=== PATIENT | female | born 1950 | race Caucasian/White ===

== ENCOUNTER → 2017-02-11 | Day surgery (SDC) | payer MEDICARE, OTHER ==
[~2017-02-11] MED LIST: ALLOPURINOL300 MG PO; ASCORBIC ACID500 M2 PO; ASPIRIN81 M1 PO; ASPIRIN81 M2 PO; BACLOFEN20 M1 PO; BENADRYL25 M1 PO; BENADRYL25 MG PO; CALCIUM 600 W/1 TAB PO; CALCIUM 600+D1 EACH PO; CALCIUM STOOL240 M1 PO; CEROVITE SENIO1 EACH PO; CHEWABLE ASPIRI81 MG PO; CHROMIUM PIC1000 MCG PO; COL-RITE50 MG PO; COMPAZINE10 M2 PO; DESYREL100 MG PO; DETROL PO; FERROUS GL324 ( 36 ) PO; FERROUS GLUCON324 M2 PO; FLEXERIL10 MG PO; GABAPENTIN300 M2 PO; GABAPENTIN300 MG PO; HYDROCODON-ACE1 EAC7 PO; K-DUR20 ME1 PO; KCL PO; LEVAQUIN250 MG PO; LISINOPRIL PO; LISINOPRIL5 MG PO; LOPRESSOR PO; LORTAB 5-325 M1 EACH PO; MELATONIN1 MG PO; MELATONIN5 M1 PO; METOPROLOL TAR25 MG PO; MULTIPLE VITAMI1 T11 PO; MULTIVITAMINS1 EAC3 PO; NAPROSYN250 M1 PO; NAPROXEN PO; OMEPRAZOLE40 M1 PO; PATIENT'S PHARMACY; POTASSIUM CHLO10 ME2 PO; PREDNISONE PO; PRILOSEC PO; ROBAXIN 750750 M1 DOB; ROBAXIN 750750 MG PO; TRAMADOL HCL E100 MG PO; TRIAMTERENE-HC1 EACH PO; TRIAMTERENE-HCT1 TA6 PO; VITAMIN C1000 M2 PO; VITAMIN C500 M1 PO; VITAMIN E400 UNI1 PO; ZOFRAN PO
--- NOTE | ~2017-02-11 | OR ---
Unit #: [id number] #: [id number] Patient: NEEL BENAVIDES I [id number] [address] [address] [id number] O MR#: [id number] NAME: NEEL BENAVIDES I. ROOM: Date of Procedure: 02/11/2017 Admission Date: 02/11/2017 Surgeon: Benigno Olivas M.D. : 1950 Attending Physician: Benigno Olivas M.D. Primary Care Physician: Lexi Jamil M.D. OPERATIVE REPORT PRIMARY CARE PHYSICIAN Lexi Jamil M.D. PREOPERATIVE DIAGNOSES Dyspepsia, dysphagia, bloating, and burping. PROCEDURES PERFORMED 1. Upper gastrointestinal endoscopy and biopsy. 2. Upper gastrointestinal endoscopy and dilation. POSTOPERATIVE DIAGNOSES 1. The patient had distal esophageal benign stricture. The latter was dilated using 18 to 20 mm TTS balloon. 2. The patient had short segment of Vincent esophagus. Appropriate biopsies obtained. 3. Mild prepyloric antral gastritis. This was in the form of scanty erosions in the prepyloric antral area. Rest of the examination up to third part of duodenum was normal. RECOMMENDATIONS 1. Follow up the results of biopsies taken today. 2. The patient will continue on omeprazole 40 mg p.o. daily. 3. She will be followed up in the office in 3 months' time. SEDATION USED MAC. DESCRIPTION OF PROCEDURE Following detailed explanation of the potential risks and complications of an upper endoscopy, namely perforation, bleeding, and complications related to sedation, the patient was brought to GI lab and laid in the left lateral decubitus position. Lubricated tip of the Olympus video upper endoscope was passed through bite block into the proximal esophagus under direct vision. The entire esophageal mucosa was examined and the patient was noted to have distal esophageal benign stricture along with evidence of short segment of Vincent esophagus. This was in the form of tongues of columnar mucosa ascending above the gastroesophageal junction. The scope was then advanced into the gastric cavity and the latter was insufflated. Mucosa of the fundus, body, and antrum examined and mild prepyloric antral erosive gastritis noted in the form of antral erosions. Pylorus was intubated with visualization of the normal duodenal bulb and second and third part of the duodenum. Upon withdrawal and retroflexion, Unit #: [id number] #: [id number] Patient: NEEL BENAVIDES I incisura, cardia, and greater curve examined and biopsy obtained from the antrum for CLOtest. The scope was then withdrawn in the distal esophagus. An 18 to 20 mm TTS balloon was passed through the accessory channel of the scope and step-up dilation of distal esophageal stricture was done. In addition, biopsies obtained from the Vincent segment and sent for histology. Dilation up to 19 mm was achieved. Minimal bleeding was noted. The area was thoroughly washed with water and good hemostasis was achieved. The scope was then withdrawn all the way up to pharynx. No additional findings noted. The patient tolerated the procedure without any postprocedure complications. Dictated by... Latoya Conway/coleman TD: 02/11/2017 11:40 JOB #: [id number] CC: Lexi Jamil M.D. OPERATIVE REPORT Page 1 of 1 X Benigno Olivas MD X PROCEDURE OPERATIVE NOTE
== END | disposition home or self-care (01) ==
LOC: COPS 07:48
DX: K21.0 Gastro-esophageal reflux disease with esophagitis (principal); K22.2 Esophageal obstruction; K25.9 Gastric ulcer, unspecified as acute or chronic, without hemorrhage or perforation; M81.0 Age-related osteoporosis without current pathological fracture; I10 Essential (primary) hypertension; M19.90 Unspecified osteoarthritis, unspecified site; Z79.899 Other long term (current) drug therapy; Z88.8 Allergy status to other drugs, medicaments and biological substances; Z90.722 Acquired absence of ovaries, bilateral; Z98.41 Cataract extraction status, right eye; Z98.42 Cataract extraction status, left eye; Z90.710 Acquired absence of both cervix and uterus; Z98.890 Other specified postprocedural states
CPT/HCPCS: 87077; 88305

== ENCOUNTER 2017-03-28 07:16 | Inpatient (IN) | payer MEDICARE, OTHER ==
[~2017-03-28] VITALS: Ht 175.3 cm; Wt 82.6 kg
--- NOTE | ~2017-03-28 | CR6 ---
[facility] A Service of [facility] & [facility] RADIOLOGY TEXT RESULTS PATIENT: NEEL BENAVIDES I LOCATION: [place] [address] : [birth year] UNIT #: [id number] AGE: [address]: Ramin Luna MD SEX: F ORDER DR: [id number] [facility] [address] [facility] [place], [place] [address] [id number] I MR#: [id number] Acc #: [id number] NAME: NEEL BENAVIDES I. : 1950 SEX: F STUDY DATE/TIME: 03/29/2017 15:33 UNIT: [facility] ROOM: [facility] STUDY DESCRIPTION: CR Abdomen Portable Sng View Attending Physician: Ramin Luna M.D. Ordering Physician: Ramin Luna M.D. Primary Care Physician: Lexi Jamil M.D. MEDICAL IMAGING REPORT This report is preliminary unless electronic signature is present EXAM KUB 03/29/2017 HISTORY Dobbhoff placement with abdominal pain today. FINDINGS Radiopaque tip of the Dobbhoff tube projects into the distal gastric body. Dictated by... Machelle Mcknight M.D. THIS IS AN ELECTRONICALLY VERIFIED REPORT Machelle Mcknight M.D. at 04/01/2017 8:34 AM EILEEN/steven TD: 03/30/2017 06:19 JOB #: [id number] MEDICAL IMAGING REPORT Page 1 of 1 COPY
--- NOTE | ~2017-03-28 | EKG ---
PATIENT: NEEL BENAVIDES UNIT #: [id number] Ventricular Rate: 110 BPM Atrial Rate: 110 BPM P-R Interval: 166 ms QRS Duration: 84 ms Q-T Interval: 344 ms QTC Calculation(Bezet): 465 ms P [place]: 47 degrees Calculated R [place]: -58 degrees Calculated T [place]: 39 degrees Diagnosis Line: Sinus tachycardia Diagnosis Line: Left axis deviation Diagnosis Line: Anterolateral infarct (cited on or before Diagnosis Line: 28-MAR-2017) Diagnosis Line: Abnormal ECG Diagnosis Line: When compared with ECG of 29-MAR-2017 06:19, Diagnosis Line: (unconfirmed) Diagnosis Line: T wave inversion no longer evident in Lateral Diagnosis Line: leads Diagnosis Line: Confirmed by ERICA RICARDO MD ([id number]) on 04/02/2017 Diagnosis Line: 3:16:29 PM INTERPRETING MD: HALEIGH CONTRERAS
--- NOTE | ~2017-03-28 | MR18 ---
[facility] A Service of [facility] RADIOLOGY TEXT RESULTS PATIENT: NEEL BENAIVDES I LOCATION: [place] [id number] : [birth year] UNIT #: [id number] AGE: [address]: Ramin Luna MD SEX: F ORDER DR: [id number] [facility] [address] [place], [place] [address] [id number] I MR#: [id number] Acc #: [id number] NAME: NEEL BENAVIDES I. : 1950 SEX: F STUDY DATE/TIME: 03/29/2017 UNIT: [facility] ROOM: [facility] STUDY DESCRIPTION: MR Brain Wo Contrast Attending Physician: Ramin Luna M.D. Ordering Physician: Luis Walker M.D. Primary Care Physician: Lexi Jamil M.D. MEDICAL IMAGING REPORT This report is preliminary unless electronic signature is present EXAM MR brain 03/29 at 21:29 INDICATIONS Patient combative since 03/27/2017 per . Patient confused. Patient unable to give additional history. TECHNIQUE Multisequence multiplanar imaging was performed through the brain without contrast in a high field strength magnet. Comparison made with head CT from 03/28/2017. FINDINGS Diffusion images demonstrate no acute or subacute ischemia. There is generalized atrophy. This is somewhat out of proportion to patient age. Ventricular size and configuration are within normal limits. Chronic small vessel ischemic changes are present in the white matter. No evidence of acute or chronic hemorrhage. No masses are identified. Major intracranial flow voids are maintained. Craniovertebral junction is within normal limits. IMPRESSION 1. No acute intracranial abnormalities. 2. Generalized atrophy out of portion to patient age with chronic small vessel ischemic disease in the white matter. Dictated by... Calderon Salcedo Jr., M.D. THIS IS AN ELECTRONICALLY VERIFIED REPORT Calderon Salcedo Jr., M.D. at 03/30/2017 8:31 PM [facility] A Service [facility] RADIOLOGY TEXT RESULTS PATIENT: NEEL BENAVIDES I LOCATION: [facility] [id number] : [birth year] UNIT #: [id number] AGE: [address]: Ramin Luna MD SEX: F ORDER DR: BAIRON/dionisio TD: 03/30/2017 11:33 JOB #: [id number] MEDICAL IMAGING REPORT Page 1 of 1 COPY
--- NOTE | ~2017-03-28 | CR72 ---
[facility] A Service of [facility] & [facility] RADIOLOGY TEXT RESULTS PATIENT: NEEL BENAVIDES I LOCATION: [facility] [id number] : [birth year] UNIT #: [id number] AGE: [address]: Ramin Luna MD SEX: F ORDER DR: [id number] [facility] [address] [place], [place] [address] [id number] I MR#: [id number] Acc #: [id number] NAME: NEEL BENAVIDES I. : 1950 SEX: F STUDY DATE/TIME: 03/28/2017 07:57 UNIT: [address] ROOM: [facility] STUDY DESCRIPTION: CR Chest Single View Portable Attending Physician: Nenita Pedersen M.D. Ordering Physician: Ham Sampson M.D. Primary Care Physician: Lexi Jamil M.D. MEDICAL IMAGING REPORT This report is preliminary unless electronic signature is present EXAM Chest portable, 03/28/2017, 0757 hours. HISTORY 66-year-old woman with altered mental status and shortness of air beginning at 10:00 a.m. on 03/27/2017. History of lymphoma, hypertension and anemia. Patient is combative this morning and will not speak to answer clinical history questions. COMPARISON 12/24/2015 FINDINGS Portable upright chest demonstrates slightly low lung volumes. Heart size is at the upper limits of normal. There is a stable tortuous aorta. The lungs are clear and there are no effusions. IMPRESSION Slightly low lung volumes with no acute cardiopulmonary findings. No change from 12/24/2015. Dictated by... Elsy Plasencia M.D. THIS IS AN ELECTRONICALLY VERIFIED REPORT Elsy Plasencia M.D. at 03/29/2017 9:26 AM DUYEN/bryan TD: 03/28/2017 16:37 JOB #: [id number] MEDICAL IMAGING REPORT Page 1 of 1 COPY
--- NOTE | ~2017-03-28 | CO ---
Unit #: [id number] #: [id number] Patient: JULIETTE BENAVIDES I [id number] [address] [place], [place] [address] [id number] I MR#: [id number] NAME: JULIETTE BENAVIDES I. [place] Age: 66 Sex: F Admission Date: 03/28/2017 : 1950 Attending Physician: Ramin Luna M.D. Primary Care Physician: Lexi Jamil M.D. Requesting Physician: Ramin Luna M.D. Consultation Date: 03/29/2017 CONSULTATION REPORT REASON FOR CONSULTATION Large cell lymphoma, altered mental status, please evaluate. 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 She was brought in by the EMS on 03/28/2017 with altered mental status. According to who is at bedside, his has been complaining of back pain and she was initially treated with a muscle relaxant. With persistence of pain, she was started on baclofen. He does not recollect what mg strength but she was taking in 3x a day. On Tuesday morning she woke up and was crying uncontrollably. He was able to reassure her and calm her down. Later that evening she again started to cry uncontrollably and he gave her a sleeping pill and managed to get her to go to sleep. On Tuesday morning she woke up even more confused and behaving abnormally. He called EMS and she was brought in to the hospital. She has been seen by neurology and diagnosed with catatonia and MRI recommended. In the ER, she has had a CT scan of the head which was negative. At admission, she was found to be tachycardic and hypertensive with an elevated troponin level. A possible stress cardiomyopathy has been diagnosed and she has been started on Lovenox and aspirin. No fever, chills, nausea, vomiting. On admission, her lactic acid level was 5.5. Her UA was abnormal with 10-20 WBC per high power field. A urinary tract infection similar to what she has had previously was suspected and she was given a gram of Rocephin. Her urine culture has subsequently come as being negative as have 2 sets of blood cultures. On interrogating the , he thinks that she may have been taking baclofen in excess because he noticed that the 3x a day containers contained twice the number of pills and he thinks that the hydrocodone which she was taking could be confused with the baclofen and she may have taken excess of this. PAST MEDICAL HISTORY 1. Large cell lymphoma diagnosed in 2014, treated with 6 cycles of RCHOP, complicated with neutropenic sepsis requiring MediPort removal. 2. Other medical problems include hypertension. PAST SURGICAL HISTORY Includes: 1. MediPort placement. 2. Bladder repair. 3. Carpal tunnel release. 4. Hysterectomy. 5. Cataract surgery. Unit #: [id number] #: [id number] Patient: JULIETTE BENAVIDES Elli 6. D and C. FAMILY HISTORY Notable for breast cancer. SOCIAL HISTORY Never smoker. Does not drink any alcohol. She is and lives with the . She has 2 daughters, 1 of whom lives locally. REVIEW OF SYSTEMS Not obtainable apart from what was in the History of Present Illness corroborated by her . PHYSICAL EXAMINATION GENERAL: On examination, she is an elderly woman, awake but not following any commands except on occasion. She is somewhat diaphoretic and tachycardic. HEENT: Face is somewhat flushed. Pupils are equal. VITALS: Temperature is 99.9, pulse is 102, respiratory rate is 18, blood pressure 151/94. O2 sat 96% on room air. T-max has been 100.2 with heart rates ranging between 133 at the time of admission to a heart rate of 102 at time of examination. Mucous membranes are dry. NECK: No lymphadenopathy, JVD, thyromegaly. CARDIOVASCULAR SYSTEM: First and second heart sounds are heard with tachycardia which is regular. No murmurs. LUNGS: Chest expansion is symmetric. Bilateral equal air entry with normal breath sounds. ABDOMEN: Soft, nontender. Bowel sounds are active. No organomegaly. EXTREMITIES: Warm with good pulses. No edema, cyanosis, clubbing. NEURO EXAMINATION: She is awake and arousable but does not follow commands. She has variable rigidity of both arms and hyperactive reflexes without any clear focal deficits. Cranial nerves II-XII appear intact. PSYCHIATRIC: Could not be tested. SKIN: Flushed. LYMPHATIC; No palpable lymph nodes. DIAGNOSTIC STUDIES LABORATORY: Labs - CBC at time of admission shows a white count of 5.5, hemoglobin 16.8, hematocrit 48.1, platelet count is 191,000. Ammonia level is 14. Protime is 11.6, INR 1.1, PTT is 24.4 seconds. Basic metabolic panel shows a BUN of 14, creatinine is 1, potassium of 3.6, eGFR is 59.1. LFTs show a bilirubin of 0.4. Alcohol is less than 5. Urine drug screen is only positive for opiates. Lactic acid at time of admission is 5.5. Her UA with urine culture shows 25-50 RBCs, innumerable white blood cells. However, her urine culture is negative. Blood culture is negative. TSH is 1.07. Unit #: [id number] #: [id number] Patient: JULIETTE BENAVIDES I Initial troponin level is 0.23, elevated to 1.8. Vitamin B12 is 367. Folic acid level is greater than 27.3. Her CPK level at time of admission is 164 with a most recent CPK level being 595. Most recent lactic acid is 2.6. IMAGING: CT scan of the head done without contrast is normal. ASSESSMENT AND PLAN Ms. Elham Benavides is 66 years old with a history of stage 2 large cell lymphoma and hypertension, admitted with altered mental status starting on 03/27/2017. She has been prescribed baclofen in the last 2 weeks but it is unclear from her 's account whether she has been taking or may have stopped it. She also may additionally have a urinary tract infection for which she is on antibiotics. However, urine culture and blood cultures are currently negative. However, the fact her lactic acid is elevated at 5.5 certainly suggests the possibility. After discussion with the patient and the I did a review of literature and there is a well known entity of baclofen withdrawal syndrome. After discussion with the this may most likely be the problem and I discussed it with rosina Lunaist. I will plan to consult Dr. Mello with whom I discussed the situation and will plan to transfer her to the Intensive Care Unit given the risk of high morbility and mortality if she indeed has a baclofen withdrawal syndrome. I spoke to pharmacy. There is no parenteral substitute for baclofen so will plan to place a Dobbhoff tube and administer baclofen p.o. I spoke to Anesthesia as well as ER physicians who both do not have any additional information to suggest management of baclofen withdrawal syndrome. I would like to call Dr. Jose Reynolds of Pain Management who may have additional input but is yet to receive a call. I also spoke to Dr. Marti who thinks that she may have stress cardiomyopathy and will plan to call me back after the echocardiogram is reviewed. Will continue Lovenox for the moment given her elevated troponin level which may be related to stress cardiomyopathy until that situation is clarified. However, (2) suggests possible that baclofen withdrawal syndrome itself can produce troponin elevation and a drug-induced cardiomyopathy which responds to reintroduction to baclofen. After transfer to Intensive Care Unit, she was given 1 mg of Ativan with no significant improvement. Her Dobbhoff tube was placed and she was started on baclofen 5 mg 3x a day with additional dose of 5 mg to be given this evening. She will be scheduled for an MRI to be done later this evening as well. Plans were discussed in detail with and at a later time with the rest of her family including her daughter and the plans to bring in her baclofen bottle to corroborate the number of pills she has been prescribed and taken. Thanks for allowing me to participate in her care. Dictated by... Latoya Albrecht/stella TD: 03/30/2017 08:08 JOB #: [id number] Unit #: [id number] #: [id number] Patient: JULIETTE BENAVIDES Elli CONSULTATION REPORT Page 1 of 1 X Maximilian Peterson MD CONSULTATION REPORT
--- NOTE | ~2017-03-28 | CO ---
Unit #: [id number] #: [id number] Patient: NEEL BENAVIDES I [id number] [address] [place], [place] [address] [id number] I MR#: [id number] NAME: NEEL BENAVIDES I. ROOM: [facility] Age: 66 Sex: F Admission Date: 03/28/2017 : 1950 Attending Physician: Ramin Luna M.D. Primary Care Physician: Lexi Jamil M.D. Consultation Date: 03/29/2017 CONSULTATION REPORT REASON FOR CONSULTATION ICU. HISTORY OF PRESENT ILLNESS The patient is a 66-year-old female, who has a history of gastric lymphoma and hypertension, who was basically in her normal state of health and had altered mental status. She was found to be crying uncontrollably. She is on baclofen and it is unclear if she took extra doses or actually missed doses and took pain medicine instead. She then was brought to the emergency room. She was confused and basically has become catatonic. There was some question of rigidity, although she fought my exam and then her muscles gave away, so rigidity was of question, however, difficult to ascertain. Lactic acid was elevated. She had low grade temperatures. Urinary tract infection was suspected by her urinalysis, but cultures so far are not growing pathogens. Her troponins have increased and Cardiology is treating her as if she has had a myocardial infarction, but apparently she had a cardiac catheterization recently that was negative. She currently is nonverbal and cannot add to the history. She looks about the room, but again remains nonverbal despite questioning. She is being transferred to the intensive care unit for further observation. The working diagnosis is baclofen withdrawal. PAST MEDICAL HISTORY Remarkable for urinary tract infections in the past, gastric lymphoma, hypertension, and apparently she has undergone cardiac evaluation which was fairly negative. MEDICATIONS At home according to the EHR, hydrocodone, potassium, Lopressor, Desyrel, Zestril, gabapentin, Prilosec, Compazine, docusate, melatonin, calcium, iron. I do not see baclofen listed, but apparently she is on that at home and her confirms that. ALLERGIES Sudafed causes tachycardia, so I doubt true allergy. FAMILY HISTORY Breast cancer. SOCIAL HISTORY She lives with her . She does not drink or smoke. REVIEW OF SYSTEMS Unobtainable. Unit #: [id number] #: [id number] Patient: NEEL BENAVIDES I PHYSICAL EXAMINATION VITAL SIGNS: Reveals the patient, who had a T-max of 100.2, now 99.9; pulse is 102, but she has been as high as 124; respiratory rate is 18 and unlabored on room air; blood pressure is 151/94. She is 5 feet 9 inches, 176 pounds. HEENT: Her pupils are equal, round, and reactive to light. She looks about the room. She does have some startle when I put my hand in front of her. Mucous membranes are mildly dry. NECK: Supple. No supraclavicular or cervical adenopathy appreciated. CHEST: Clear anteriorly. No wheeze, stridor, or consolidation. CARDIAC: Reveals regular rate and rhythm. No pathologic murmur, rub, or gallop. ABDOMEN: Soft and nontender. No hepatomegaly or rebound. EXTREMITIES: Reveal some possible rigidity. She did move both upper extremities to my commands and the nursing staff said that is the first time she has done that all day. Again, when I worked with her, she initially held pressure against my hand, but then it seemed to giveaway, unclear if it was true rigidity. She has extension of her feet, otherwise would not cooperate with a full neurologic exam. SKIN: Warm and dry. DIAGNOSTIC STUDIES IMAGING STUDIES: Chest x-ray, unremarkable. Head CT, unremarkable. LABORATORY RESULTS: BUN 13, creatinine 0.7, potassium 3.1 and being replaced. Lactate was 5.5, now it is 2.6. Ammonia level is normal. Troponin has increased to 1.8. CK now is 595. INR normal. White blood cell count was 5.5, now 11.2; hemoglobin has been elevated at 16.7 and hematocrit of 47.5. Tox screen, opiates. Urinalysis; pyuria, some hematuria. Culture was negative. Blood cultures are no growth so far. CARDIOVASCULAR STUDIES: EKG; no definite acute ischemic changes. IMPRESSION 1. Catatonia possible knee rigidity, elevated troponin and CK, low-grade temperature. Certainly, it could be baclofen overdose. I have discussed this case in depth with Dr. Peterson. We have tried to look up this fairly rare complication. It actually can also cause a reversible cardiomyopathy, although withdrawal syndromes are usually seen in higher dosages. 2. Abnormal UA, possible urinary tract infection. 3. History of gastric lymphoma. 4. Polycythemia suspect some degree of volume depletion. 5. History of hypertension. PLAN Move to the ICU, trial of benzodiazepines. Feeding tube will be placed and once confirmed, we will start low-dose baclofen. Follow her CKs, troponins, etc. I have discussed the case closely with family and Dr. Peterson. Echocardiogram is pending. Thank you very much for allowing me to participate in the care of Ms. Benavides. Dictated by... Ramin Mello M.D. Unit #: [id number] #: [id number] Patient: NEEL BENAVIDES I LESLYE/coleman TD: 03/29/2017 19:51 JOB #: [id number] CC: Lexi Jamil M.D. CONSULTATION REPORT Page 1 of 1 X Ramin Mello MD CONSULTATION REPORT
--- NOTE | ~2017-03-28 | CR6 ---
[facility] A Service of [facility] & [facility] RADIOLOGY TEXT RESULTS PATIENT: NEEL BENAVIDES I LOCATION: [facility] : [birth year] UNIT #: [id number] AGE: [address]: Ramin Luna MD SEX: F ORDER DR: [id number] [facility] [address] [facility] [place], [place] [address] [id number] I MR#: [id number] Acc #: [id number] NAME: NEEL BENAVIDES I. : 1950 SEX: F STUDY DATE/TIME: 03/29/2017 17:27 UNIT: [facility] ROOM: [facility] STUDY DESCRIPTION: CR Abdomen Portable Sng View Attending Physician: Ramin Luna M.D. Ordering Physician: Ramin Mello M.D. Primary Care Physician: Lexi Jamil M.D. MEDICAL IMAGING REPORT This report is preliminary unless electronic signature is present EXAM Portable abdomen. HISTORY A abdomen pain today. Feeding tube placement. FINDINGS The visualized bowel gas pattern is normal. Exam does not include the most inferior margin of the pelvis. Feeding tube tip is in the right upper quadrant at the level of the duodenal bulb or distal gastric antrum approximately 22 cm beyond the EG junction. Dictated by... Gabriele Diaz M.D. THIS IS AN ELECTRONICALLY VERIFIED REPORT Gabriele Diaz M.D. at 03/30/2017 11:44 PM DFL/gz TD: 03/30/2017 09:05 JOB #: [id number] MEDICAL IMAGING REPORT Page 1 of 1 COPY
--- NOTE | ~2017-03-28 | CO ---
Unit #: [id number] #: [id number] Patient: NEEL BENAVIDES I [id number] [address] [place], [place] [address] [id number] I MR#: [id number] NAME: NEEL BENAVIDES I. ROOM: [facility] Age: 66 Sex: F Admission Date: 03/28/2017 : 1950 Attending Physician: Ramin Luna M.D. Primary Care Physician: Lexi Jamil M.D. Consultation Date: 03/28/2017 CONSULTATION REPORT REASON FOR CONSULTATION Elevated troponin. 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 Peterson, last chemo was in 10/2015. The patient has chronic pain problems. She takes pain medications and gabapentin. The patient was brought in by her after she had altered mental status changes. According to the patient, she was fine on Tuesday morning and through the day, she started crying uncontrollably was precipitating her crying. She was not making sense on most of her conversation. She made a statement how to make coffee and she said it was raining in her closet. He did not observe any fever, chills, or cough and she had no complaints of chest pain, abdominal pain. No nausea, vomiting, or diarrhea. Her appetite had been good up to that time. On exam with the patient, she is unable to answer any questions. She just has a stare. Did do a hand squeeze on command and then would not release the hand squeeze when asked. The patient is moving at times all extremities but without purpose. In the emergency room, the patient's initial heart rate was 133 and her blood pressure was 165/97. Her urinalysis showed concerns for UTI. Her lactic acid was 5.5. She was started on the sepsis protocol and given a dose of IV Rocephin after cultures. There is concern about her maybe getting too much of her home medication. She received 20 mg of Geodon in the emergency room department. The patient will be admitted with altered mental status, UTI, and sepsis. Cardiac enzymes were obtained and troponin of 0.23 and continued to increase to 0.28 to 0.39, this morning 1.19. Her EKG shows sinus rhythm, shows inferior Q-waves, anterolateral infarct age undetermined. Cardiology consult to assist with evaluation and management. The patient does see Dr. Oneill in the office for post radiation and chemotherapy, had a MUGA scan, her EF was found to be 47%. She had normal coronaries on a cath done last December. According to the , she has been doing fairly well. PAST MEDICAL HISTORY 1. Hypertension. 2. 2D echo performed 08/2015 showed LVEF of questionable 50%, mild TR, trace pericardial effusion. Unit #: [id number] #: [id number] Patient: NEEL BENAVIDES I 3. Abnormal stress test performed in 12/2015 which showed some suspicion for small area of stress-induced ischemia involving the inferior apical wall. EF was found to be 65%. 4. Cardiac cath performed by Dr. Marti on 01/08/2016 that showed normal coronaries. No evidence of mitral regurgitation or mural thrombus and LVEF of 50%. 5. History of gastric and esophageal lymphoma, followed by Dr. Peterson, status post chemotherapy with last chemotherapy being 10/2015. 6. History of neutropenic fever secondary to Pseudomonas, Port-A-Cath infection, E coli UTI back in 07/2015. 7. Nonsmoker. PAST SURGICAL HISTORY 1. D and C. 2. Cataract surgery. 3. Hysterectomy. 4. Bladder repair. 5. Carpal tunnel release. HOME MEDICATIONS Hydrocodone/acetaminophen 5/325 one tablet p.o. q.i.d. p.r.n., Klor-Con 20 mEq p.o. daily, metoprolol 25 mg p.o. b.i.d., Desyrel 100 mg p.o. at bedtime, multivitamin one tablet daily, melatonin 5 mg p.o. at bedtime p.r.n., calcium plus vitamin D 1 tablet p.o. b.i.d., ferrous gluconate 324 mg p.o. daily, lisinopril 5 mg p.o. daily, gabapentin 300 mg p.o. t.i.d., Prozac 40 mg p.o. daily, Compazine 10 mg p.o. t.i.d. p.r.n., docusate sodium 300 mg p.o. at bedtime. ALLERGIES Pseudoephedrine from Sudafed. SOCIAL HISTORY The patient lives with her spouse. According to him, she is fairly active for her age. She keeps the chores around the home. She has been a lifelong nonsmoker. No alcohol or illicit drug abuse. She walks without assistance. FAMILY HISTORY Her mother is living and doing fairly well. She is close to 90. Her siblings are in generally well health. Unsure of her father's medical issues. REVIEW OF SYSTEMS See details in HPI. PHYSICAL EXAMINATION GENERAL: On exam, Ms. Benavides is a 66-year-old white female, in no acute respiratory distress. She is awake. She is not nonverbal at this time. She occasionally will obey a command, but other than that she has a stare, does not make good eye contact. Moving extremities, but nonpurposeful, not on command. NECK: Trachea midline. No thyromegaly or lymphadenopathy. Normal carotid upstrokes. No jugular venous distention. HEART: S1 and S2. Regular rate and rhythm. No clicks, murmurs, or rubs. LUNGS: Diminished, otherwise clear. ABDOMEN: Obese, soft, nontender. EXTREMITIES: Pedal pulses are palpable. Trace pedal edema. Unit #: [id number] #: [id number] Patient: NEEL BENAVIDES I DIAGNOSTIC STUDIES LABORATORY RESULTS: Glucose is 159, BUN 13, creatinine 0.7, eGFR is 90.9, sodium 142, potassium 3.1, chloride 108, CO2 of 20, calcium is 9.1, total protein 7.2, albumin 4.2, bilirubin total 1.8, AST 45, ALT 20, alkaline phosphatase is 62. Ammonia level 14. TSH is 1.07. Alcohol level is less than 5. WBCs 9.2, hemoglobin 16.7, hematocrit 47.5, and platelets is 169. Initial cardiac enzymes; CK total is 164 with troponin of 0.23, CK total is 322 with troponin of 0.28, CK total 427 with troponin is 0.39, CK total is 593, MB is 14.5, percentage of MB 2.4, troponin 1.19. Urine tox screen is positive for opiates. Urinalysis shows 3+ leukocyte esterase, 2+ protein, 1.0 urobilinogen, 2+ blood, 25 to 50 rbc's, innumerable WBCs, negative bacteria. Urine and blood cultures are pending. IMAGING STUDIES: Chest x-ray shows low lung volumes, otherwise nothing acute. CT of the head without contrast, nothing acute. CARDIOVASCULAR STUDIES: EKG shows normal sinus rhythm with ventricular rate 125 beats per minute, left axis deviation, inferior Q-waves, T-waves in inferior leads, put also anterolateral leads, and poor R-wave progression. IMPRESSION 1. Altered mental status, catatonic. 2. Urinary tract infection. 3. Sepsis syndrome. 4. Elevated troponin, acute coronary syndrome. Rfk-IL-phplclmq myocardial infarction. Questionable etiology. Has had a cardiac cath in 12/2015 that showed normal coronaries. 5. Hypertension. 6. History of gastric esophageal lymphoma. Told was in remission, last chemo was 12/2015. 7. Hypokalemia. 8. Obesity, BMI of 26, weight 176 pounds. PLAN 1. Cardiology consult to assist with evaluation and management. At this point, we will treat medically for fqh-ZT-qxjxcfms myocardial infarction. The patient is unable to swallow her pills at this time due to her catatonic state. We will start on IV metoprolol 5 mg IV every 6 hours with parameters. The patient is on p.r.n. hydralazine for blood pressure management. We will add low-dose nitroglycerin paste and aspirin per rectum. 2. Obtain a fasting lipid profile and evaluate. However, I was unable to give a statin today because of her n.p.o. status. 3. We will continue to monitor cardiac enzymes. There is no evidence of acute congestive heart failure. 4. Had a long discussion with the patient's spouse over the phone about her health issues and conditions. The patient states he has been over 40 years and he has never seen his in this state. We will have Dr. Walker to see the patient to make his recommendation of the etiology of her catatonic state. 5. We will start on anticoagulation for the non-STEMI. Lovenox 1 mg/kg subcu b.i.d. 6. We will also repeat a 2D echo to evaluate her LV function and valves. Unit #: [id number] #: [id number] Patient: NEEL BENAVIDES I Make sure she does not have a stress cardiomyopathy. 7. We will repeat cardiac enzymes and EKG this afternoon and make sure they are trending downward. 8. We will also consider a psychological evaluation. 9. Treatment for UTI. 10. Supportive care. 11. Further recommendations pending per Dr. Marti. Thank you very much for allowing us to assist in the care. Dictated by... Sawyer RichmondPJacobRLesvia for Latoya Shook/coleman TD: 03/30/2017 05:41 JOB #: [id number] CONSULTATION REPORT Page 1 of 1 X Sherry Dunne APRN X CONSULTATION REPORT
--- NOTE | ~2017-03-28 | CO ---
Unit #: [id number] #: [id number] Patient: NEEL BENAVIDES I [id number] [facility] [address]. [place], [place] [address] [id number] I MR#: [id number] NAME: NEEL BENAVIDES I. ROOM: [facility] Age: 66 Sex: F Admission Date: 03/28/2017 : 1950 Attending Physician: Ramin Luna M.D. Primary Care Physician: Lexi Jamil M.D. Consultation Date: 03/29/2017 CONSULTATION REPORT REASON FOR CONSULTATION Mental status changes. PATIENT IDENTIFICATION This is a 66-year-old right-handed white female, who was evaluated in room 341 at [facility]. SOURCE OF INFORMATION Medical records and my brief discussion with Dr. Luna and also with the patient's . PROBLEM LIST 1. UTI, possible septic syndrome. 2. Gastric lymphoma. 3. D and C. 4. Cataract surgery. 5. Hysterectomy. 6. Bladder repair. 7. Carpal tunnel release. 8. Chronic pain syndrome. 9. Benign essential hypertension. 10. Insomnia. 11. Possible severe depression. 12. Abnormal labs. 13. Prior Pseudomonas infection. HISTORY OF PRESENT ILLNESS This is a 66-year-old female, who actually was brought in because she had mental status changes. She apparently stopped talking, but before that she was crying for days. Now, she is just looking around, she is tracking, but she is not communicating. She is moving all extremities. She looks nonfocal. There are no rolling eye movements. There is nothing suggesting seizures. There is no meningismus. She has frontal release sign type of grasp, but nothing else. I talked to her, she grimaces and withdraws to pain, but she is not talking. One of the concern is this more a catatonic type reaction. She has not done anything like this before, but there has been some concern about UTI related problem. No falls or injuries. PAST MEDICAL HISTORY As discussed above. PAST SURGICAL HISTORY As discussed above. Unit #: [id number] #: [id number] Patient: NEEL BENAVIDES I ALLERGIES Pseudoephedrine. HOME MEDICATIONS Hydrocodone/acetaminophen 5/325 q.i.d., potassium 20 mEq daily, Lopressor 25 mg b.i.d., Desyrel 100 mg daily, Zestril 5 mg daily, gabapentin 300 mg t.i.d., Prilosec 40 mg daily, Compazine 10 mg t.i.d. p.r.n., docusate 300 mg at bedtime, multivitamin, melatonin 5 mg at bedtime, calcium plus D, iron 325. FAMILY HISTORY Breast cancer. SOCIAL HISTORY The patient is , lives with her . She has no tobacco, alcohol, or drug use. REVIEW OF SYSTEMS Could not be obtained, she refused to talk. PHYSICAL EXAMINATION VITAL SIGNS: Temperature 98.8, pulse 124, respirations 20, blood pressure is 170/91, O2 saturations were 94% to 100%, weight of 181 pounds, BMI was 26. NEUROLOGIC: The patient is awake. She is alert. She is tracking, but she is not talking. It looks like she may have been following some commands. Cranial nerve examination; she responded to threats in the primary uribe. Pupils round, reactive to light, size about at least 4 mm. Eye movements seem to be conjugate. No ptosis. No nystagmus. Sensation on the face and scalp were present. Muscle of facial expression are symmetric. Muscle of mastication could not be checked. Hearing seemed to be intact. She responds to loud noises and tracks. Otherwise, I could not visualize oropharynx or uvula. Tongue was midline. No neck stiffness was seen. She may be forcefully turning her head. Motor examination, she has normal bulk and tone. Strength was at least 4/5. She seemed to withdraw, but does not talk. Sensory examination respond to pain. I could not get any reflexes in the lower extremities, 1/4 at the elbows and toes are equivocal. Gait and coordination could not be evaluated. DIAGNOSTIC STUDIES IMAGING STUDIES: CT was reported as okay. LABORATORY RESULTS: Glucose 159 to 185. AST was 45. B12 was 367. Lactic acid was 5.5. White count is 11.2, H and H of 16.7 and 47.5, platelet count was 169. Urinalysis showed innumerous wbc's, 4+ bacteria, protein 2+, leukocyte esterase 3+, positive for opioids and she is on medication. IMPRESSION Unit #: [id number] #: [id number] Patient: NEEL BENAVIDES I Mental status changes, very nonspecific. She does have a possibility of urosepsis, but what concerns me is most likely psych issues, because it started with crying and she was saying things like I forgot doing stuff, I forgot making coffee, and it looks more like a catatonia. I will check MRI of the brain. It does not look like seizure, does not look like MARKETING DATABASE COORDINATOR infection based on how she does and imaging study will decide future course of action. I talked to her . Call me for any other questions, issues, or concerns and I will treat as indicated including possible further imaging studies, LP, and EEG as indicated and treatment will be accordingly. Dictated by... Latoya Maguire/coleman TD: 03/29/2017 14:42 JOB #: [id number] CONSULTATION REPORT Page 1 of 1 X Luis Walker MD X CONSULTATION REPORT
--- NOTE | ~2017-03-28 | CT71 ---
[facility] A Service of [facility] RADIOLOGY TEXT RESULTS PATIENT: NEEL BENAVIDES I LOCATION: [facility] 341- : 51 UNIT #: [id number] AGE: [address]: Nenita Pedersen MD SEX: F ORDER DR: [id number] [facility] [address]. [place], [place] [address] [id number] I MR#: [id number] Acc #: [id number] NAME: NEEL BENAVIDES I. : 1950 SEX: F STUDY DATE/TIME: 03/28/2017 8:37 UNIT: [address] ROOM: 321 STUDY DESCRIPTION: CT Head Wo Contrast Attending Physician: Nenita Pedersen M.D. Ordering Physician: Ham Sampson M.D. Primary Care Physician: Lexi Jamil M.D. MEDICAL IMAGING REPORT This report is preliminary unless electronic signature is present EXAM Ct scan of the head without contrast. HISTORY Confusion, combative since yesterday morning. Also seizures and drug overdose. There is no comparison. The CT exam was performed with one or more of the following radiation dose reduction techniques: automatic exposure control, adjustment of mA and/or kV according to patient size, and iterative reconstruction. FINDINGS Unenhanced images were obtained through the brain without contrast. The ventricles and subarachnoid spaces are normal. There are no masses or extraaxial fluid collections or hemorrhage. IMPRESSION 1. Normal unenhanced head CT scan. Dictated by... Tien Barboza M.D. THIS IS AN ELECTRONICALLY VERIFIED REPORT Tien Barboza M.D. at 03/28/2017 4:32 PM LAMAR/dionisio TD: 03/28/2017 16:27 JOB #: [id number] [facility] A Service of [facility] RADIOLOGY TEXT RESULTS PATIENT: NEEL BENAVIDES I LOCATION: [facility] 341- : 51 UNIT #: [id number] AGE: [address]: Nenita Pedersen MD SEX: F ORDER DR: MEDICAL IMAGING REPORT Page 1 of 1 COPY
--- NOTE | ~2017-03-28 | DS ---
Unit #: [id number] #: [id number] Patient: JULIETTE BENAVIDES I [id number] [address] [address] [id number] I MR#: [id number] NAME: JULIETTE BENAVIDES I. ROOM: [facility] Age: 66 Sex: F Admission Date: 03/28/2017 : 1950 Discharge Date: 04/02/2017 Attending Physician: Ramin Luna M.D. Primary Care Physician: Lexi Jamil M.D. DISCHARGE SUMMARY PRIMARY DIAGNOSES 1. 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 2. Takotsubo cardiomyopathy. SECONDARY DIAGNOSES 1. Possible urinary tract infection. 2. Possible baclofen withdrawal. 3. History of coronary artery disease with open coronary arteries and graft arteries from cath in December of 2015. 4. Hypertension. 5. History of gastric lymphoma. 6. Obesity. 7. Hypokalemia. 8. Chronic back pain. 9. Anxiety, not otherwise specified. 10. Mood disorder, not otherwise specified. 11. Possibly adjustment disorder related to the psychiatric diagnosis and moving away of her sister. 12. Severe systemic inflammatory response syndrome. 13. Possibly severe sepsis related to urinary tract infection or viral infection. HOSPITAL COURSE Ms. Juliette Benavides is a 66-year-old, white female who initially was tearful for a day prior to admission to the hospital. She presented with altered mental status, not speaking, and having some difficulty with moving her extremities. Initially, it was thought she may have a toxic encephalopathy as her urinalysis suggested a UTI although her presentation was very atypical for this with the patient able to focus and follow me with her eyes and, while unable to follow commands, her neurologic exam would change in a period of minutes and she would fully retract from painful stimuli. Ultimately, I felt that the patient's mood disorder was responsible for her alteration in mental status. In addition, the patient had her troponin elevation up to a level of 1.8 and it then trended down to 0.55. Based on her recent cardiac catheterization, ecological risk assessor diagnosed the patient with Takotsubo cardiomyopathy also called "broken heart syndrome," which is strongly associated with epinephrine and other stress hormone release causing myocardial stunning. After the patient clinically improved, I attempted to have conversations about the patient's depressed mood and recent psychological stressors with her and her . I found that the had significant sabianism objections to psychiatric followup and psychiatric medications. They have obviously had a very long course of dealing with psychiatric issues with the patient's sister who I am told was on high dose Lexapro and antipsychotics and was Unit #: [id number] #: [id number] Patient: JULIETTE BENAVIDES I essentially immobile with her psychiatric diagnoses for the last year prior to the patient moving out of [place] to live with other family members approximately two months ago. When I spoke to the patient alone, she admitted that she had been very sad about this, but she seems reticent to fully disclose how hard this has been on her when asked in front of her . I did ask oncology to evaluate the patient due to her history of gastric lymphoma. We did not feel that gastric lymphoma was still present nor that it was contributing to her current symptoms; however, oncology was concerned about the possibility of baclofen withdrawal causing patient's cardiomyopathy and possible neuroleptic malignant type syndrome. Ultimately, I did not feel that was the likely diagnosis. The patient had only recently switched her muscle relaxant, maybe six days prior to admission, but we did move her to the ICU for monitoring for 24 hours and did restart her on muscle relaxants in order to treat the possibility of baclofen withdrawal as it could be a potentially serious diagnosis. We are continuing to wean her slowly from muscle relaxants for that reason. As the patient's is against psychiatric followup, I have advised that the patient should follow up with her bush regenerator at her yazdanism and consider seeing him weekly for sabianism counseling to help her with her emotions regarding her sister. I have restarted her on her home medications of trazodone, gabapentin, and melatonin and, while she is at subacute rehab, will place her on fluvoxamine and recommend it continue at discharge if possible. DISCHARGE DISPOSITION To subacute rehab. Discharge date is expected to be 04/02/2017. DISCHARGE DIET Low-sodium, heart healthy diet. DISCHARGE ACTIVITY With assistance only. DISCHARGE STATUS Stable. DISCHARGE MEDICATIONS 1. Tylenol 650 p.o. q.6 hours p.r.n. for mild pain or headache. 2. Gabapentin 200 mg p.o. t.i.d. 3. Trazodone 100 mg p.o. q.h.s. 4. Zofran 4 mg p.o. q.6 hours p.r.n. for nausea. 5. Ativan 1 mg p.o. q.4 hours p.r.n. for anxiety. 6. Lopressor 50 mg p.o. b.i.d. 7. Docusate 300 mg p.o. q.h.s. 8. Lisinopril 10 mg p.o. q.h.s. 9. Ferrous gluconate 324 mg p.o. daily. 10. Multivitamin 1 tablet p.o. daily. 11. Melatonin 5 mg p.o. at 7:00 p.m. each evening. 12. Aspirin 81 mg p.o. daily. 13. Hydrocodone with Tylenol 5 mg p.o. q.i.d. (four times a day) as needed for pain. 14. Prilosec 40 mg p.o. daily. 15. Calcium with vitamin D 600 mg p.o. b.i.d. 16. Potassium chloride 20 mEq p.o. b.i.d. 17. Baclofen 5 mg p.o. daily for 5 days and then stop. Unit #: [id number] #: [id number] Patient: JULIETTE BENAVIDES I 18. Flexeril 10 mg p.o. q.8 hours p.r.n. muscle spasms. 19. Vitamin C 1000 mg p.o. daily. 20. Omnicef 300 mg p.o. b.i.d. for 3 more days for possible UTI. Dictated by... Ramin Luna M.D. DAVID/yajaira TD: 04/02/2017 12:23 JOB #: [id number] DISCHARGE SUMMARY Page 1 of 1 X Ramin Luna MD X DISCHARGE SUMMARY
--- NOTE | ~2017-03-28 | CO ---
Unit #: [id number] #: [id number] Patient: JULIETTE BENAVIDES I [id number] [facility] [address]. [place], [place] [address] [id number] I MR#: [id number] NAME: JULIETTE BENAVIDES I. ROOM: 568 Age: 66 Sex: F Admission Date: 03/28/2017 : 1950 Attending Physician: Ramin Luna M.D. Primary Care Physician: Lexi Jamil M.D. Consultation Date: 04/02/2017 CONSULTATION REPORT REASON FOR CONSULTATION Followup. DISCUSSION Ms. Juliette Benavides is a 66-year-old white female, seen in room 568, bed 1 on 04/02/2017. The patient is seen at [facility]. The patient is pleasant, cooperative, and sleeping good. The patient is tolerating medication fairly well; currently on trazodone. Vital signs; temperature 98.0, pulse 85, respiratory rate 16, blood pressure 150/84, and oxygen saturation 100%. The patient denied any suicidal or homicidal ideation. Denied any crying spells. The patient will be going to rehab program. The patient has a history of psychiatric issue, but family was very guarded according to the patient's family. Essentially, seemed to have significant samaritan objection to psychiatric followup and psychiatric medication. The patient was on Lexapro, antipsychotic, and was immobile last year. The patient is currently on trazodone. No side effects from medication. REVIEW OF SYSTEMS Complete review of systems unremarkable. MENTAL STATUS EXAMINATION General appearance, the patient is dressed casually in hospital attire, lying comfortably in bed. Attention span and concentration, fair. Speech, regular rate and coherent. Oriented in time, place, and person. Mood and affect were sad and dysphoric. Thought process, coherent. Thought content, the patient denied any thoughts of harming self or others, but somewhat guarded. Recent and remote memory, fair. Language, intact. Fund of knowledge, fair. Insight and judgment, fair to slightly impaired. DIAGNOSIS Psychiatric: Major depressive disorder, recurrent, severe, F33.2. ASSESSMENT AND PLAN 1. Supportive psychotherapy and psychoeducation provided to the patient. 2. Educated about benefits and side effects of medication and course and prognosis of illness. 3. Advised to continue with trazodone 100 mg at bedtime that will help with the sleep as well as with the depression. If needed, consider going back on Lexapro. Please feel free to call if any question, telephone #[phone]. Unit #: [id number] #: [id number] Patient: JULIETTE BENAVIDES I Dictated by... Latoya Matthews/coleman TD: 04/03/2017 03:49 JOB #: [id number] CONSULTATION REPORT Page 1 of 1 X Damien Hurst MD X CONSULTATION REPORT
--- NOTE | ~2017-03-28 | CR72 ---
[facility] A Service of [facility] & [facility] RADIOLOGY TEXT RESULTS PATIENT: NEEL BENAVIDES I LOCATION: [place] [address] : [birth year] UNIT #: [id number] AGE: [address]: Ramin Luna MD SEX: F ORDER DR: [id number] [facility] [address]. [place], [place] [address] [id number] MR#: [id number] Acc #: [id number] NAME: NEEL BENAVIDES I. : 1950 SEX: F STUDY DATE/TIME: 03/30/2017 5:47 UNIT: [facility] ROOM: [facility] STUDY DESCRIPTION: CR Chest Single View Portable Attending Physician: Ramin Luna M.D. Ordering Physician: Ramin Mello M.D. Primary Care Physician: Lexi Jamil M.D. MEDICAL IMAGING REPORT This report is preliminary unless electronic signature is present EXAM Single view of the chest dated 03/30/17 at 0547 hours. COMPARISON Single view chest dated 03/29/17. HISTORY Patient overdosed on medications, shortness of air and lethargic for 3 days. Advanced Dobbhoff tube. FINDINGS Frontal view of the chest was obtained. Dobbhoff tube has been advanced from the region of the GE junction to the region of the distal body/antrum of the stomach. There is nonspecific bowel gas pattern. No free intraperitoneal air. Minimal subsegmental atelectasis is seen in the left lung base abutting the lateral left hemidiaphragm. Dictated by... Suzie Turpin M.D. THIS IS AN ELECTRONICALLY VERIFIED REPORT Suzie Turpin M.D. at 03/31/2017 2:45 PM CPR/pc TD: 03/30/2017 12:52 JOB #: [id number] MEDICAL IMAGING REPORT Page 1 of 1 COPY
--- NOTE | ~2017-03-28 | A ---
[facility] Nutrition Therapy DATE: 03/29/17 Patient: NEEL BENAVIDES Physician: ANNE Address: [address] Room/Bed: [address] [place] [address], Zip: [place] [address] Admit Date: 03/28/17 Date of : [birth year] Height: 5 9 Weight: 176 80.2 NUTRITIONAL ASSESSMENT: REASON: consult "per recommendation" Assessment: Patient not appropriate for RD assessment ATT. Will f/u tomorrow on 03/30. Respectfully, ASHVIN BHATIA RD, LD Food and Nutritional Services [facility] cc: client file
--- NOTE | ~2017-03-28 | A ---
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 See admitting dx and PMH as stated above. Patient lives with her , is currently on room air. She has been non-verbal in a catatonic state, is confused, has restraints. Tox screen positive for opiates. MRI negative. Appetite noted to be good prior to arrival. Pt unable to complete swallow eval at this time, DHT placed yesterday 03/29. MD ordered Jevity 1.5 goal rate 60 ml/hr. Feeds currently running at 30 ml/hr. RD informed RN of 50 ml/hr goal rate per RD recs as stated below. Pt inappropriate for interview at this time. See recs below, will follow hospital course. Dx: Inadequate enteral nutrition infusion r/t feeds not yet at goal rate AEB Jevity 1.5 @ 30 ml/hr. Intervention: EN recs as stated below, lyte replacement Monitoring, Evaluation and Goals: 1. EN consistent with estimated nutritional needs (tolerate @ goal rate). 2. Lytes, AST, ALT, glucose WNL. 3. Promote regular BM's. [facility] Nutrition Therapy DATE: 03/30/17 Patient: NEEL BENAVIDES Physician: ANNE Address: [address] [place] [address] DRIVE Room/Bed: [address], Zip: [place] [address] Admit Date: 03/28/17 Date of : [birth year] Height: 5 9 Weight: 176 80 Monitor: per protocol, criteria to determine if above goals met Recommendations: Continue enteral nutrition with Jevity 1.5 formula 1. Increase enteral feeds by 10 ml q 4 hours until goal rate of 50 ml/hr is reached, to provide 1200 ml, 1800 kcals, 77 g protein and 912 ml water. Once at goal rate add free water flushes of 225 ml QID and hold liquid IVF. 2. Replace lytes prn (K/Phos low). 3. [employer] eval once appropriate, recommend regular diet. Respectfully, Carmencita Sutherland RD, LD Food and Nutritional Services [facility] cc: client file
--- NOTE | ~2017-03-28 | CO ---
Unit #: [id number] #: [id number] Patient: JULIETTE BENAVIDES I [id number] [facility] [address] [facility] [facility]. [place], [place] [address] [id number] I MR#: [id number] NAME: JULIETTE BENAVIDES I. ROOM: 568 Age: 66 Sex: F Admission Date: 03/28/2017 : 1950 Attending Physician: Ramin Luna M.D. Primary Care Physician: Lexi Jamil M.D. Consultation Date: 04/01/2017 CONSULTATION REPORT REASON FOR ASSESSMENT Depression and anxiety. HISTORY OF PRESENT ILLNESS Ms. Juliette Benavides is a 66-year-old white female, seen in room 551, bed 1 on 04/01/2017 at [facility]. The patient dressed casually in hospital attire, lying comfortably in bed. The patient's was at the bedside. The patient denied any problem with depression or anxiety, but when she was admitted, she was very tearful, anxious, nervous, somewhat confused. The patient's vital signs; temperature 98.0, pulse 85, respiratory rate 16, blood pressure 150/84, and oxygen saturation 100%. The patient was minimizing her symptoms as well as her . The patient was admitted with altered mental status. The patient was crying uncontrollably saying that things do not make sense. The patient was crying, stated that she forgot to make coffee. The patient was sad, dysphoric, labile at that time and had a problem with confusion. The patient has a history of mood lability, but never been diagnosed with depression or ever been treated. PAST PSYCHIATRIC HISTORY Unknown for any history of any psychiatric treatment or diagnosis. No history of any suicide attempt. MEDICAL HISTORY Remarkable for history of gastric lymphoma, hypertension. MEDICATION HISTORY The patient is on hydrocodone, potassium, Lopressor, Desyrel 100 mg at bedtime, Zestril, gabapentin, Prilosec, Compazine, docusate, multivitamin, melatonin, calcium, and iron. FAMILY HISTORY AND SOCIAL HISTORY The patient has a good support system from family. No history of abuse. No known history of any substance abuse. REVIEW OF SYSTEMS Complete review of systems is unremarkable. The patient's vital signs; temperature 99.0, pulse 112, respiratory rate 16, blood pressure 156/57, and oxygen saturation 98%. MENTAL STATUS EXAMINATION General appearance, the patient dressed casually, sitting comfortably in bed. Made good eye contact, pleasant, cooperative. Attention span and Unit #: [id number] #: [id number] Patient: JULIETTE BENAVIDES I concentration, fair. Speech, regular rate. Oriented in time, place, and person. Mood and affect, sad, dysphoric, but denied any problem with depression. Thought process, coherent. Thought content, the patient denied any thoughts of harming self or others or any hallucination. Recent and remote memory, fair. Language, intact. Fund of knowledge, fair to slightly impaired. DIAGNOSES Major depressive disorder, recurrent, severe, F33.2; anxiety disorder, not otherwise specified. Secondary diagnosis: Deferred. Medical diagnosis: Please refer to H and P. ASSESSMENT/PLAN 1. Supportive psychotherapy and psychoeducation provided to the patient. 2. Educated about benefits and side effects of medication and course and prognosis of illness. 3. Advised to continue with Neurontin, Desyrel, melatonin combination. If needed, consider a trial of SSRI. We will continue to follow. Please feel free to call if you have any questions, telephone # . Dictated by... Damien Hurst M.D. ERNESTO/coleman TD: 04/03/2017 01:21 JOB #: [id number] CONSULTATION REPORT Page 1 of 1 X Damien Hurst MD X CONSULTATION REPORT
--- NOTE | ~2017-03-28 | EKG ---
PATIENT: NEEL BENAVIDES UNIT #: [id number] Ventricular Rate: 125 BPM Atrial Rate: 125 BPM P-R Interval: 168 ms QRS Duration: 78 ms Q-T Interval: 280 ms QTC Calculation(Bezet): 404 ms P Grafton: 8 degrees Calculated R Grafton: -59 degrees Calculated T Grafton: 77 degrees Diagnosis Line: Sinus tachycardia Diagnosis Line: Left axis deviation Diagnosis Line: Cannot rule out Inferior infarct , age Diagnosis Line: undetermined Diagnosis Line: Cannot rule out Anterolateral infarct (cited on or Diagnosis Line: before 28-MAR-2017) Diagnosis Line: Abnormal ECG Diagnosis Line: When compared with ECG of 28-MAR-2017 07:33, Diagnosis Line: (unconfirmed) Diagnosis Line: Possible Inferior infarct is now Present Diagnosis Line: Nonspecific T wave abnormality now evident in Diagnosis Line: Inferior leads Diagnosis Line: Inverted T waves have replaced nonspecific T wave Diagnosis Line: abnormality in Lateral leads Diagnosis Line: Confirmed by ERICA RICARDO MD ([id number]) on 03/30/2017 Diagnosis Line: 7:58:40 AM INTERPRETING MD: HALEIGH CONTRERAS
--- NOTE | ~2017-03-28 | EKG ---
PATIENT: NEEL BENAVIDES UNIT #: [id number] Ventricular Rate: 129 BPM Atrial Rate: 129 BPM P-R Interval: 162 ms QRS Duration: 88 ms Q-T Interval: 284 ms QTC Calculation(Bezet): 416 ms P Leola: 37 degrees Calculated R Leola: -65 degrees Calculated T Leola: 78 degrees Diagnosis Line: Sinus tachycardia Diagnosis Line: Left axis deviation Diagnosis Line: Cannot rule out Anterolateral infarct , age Diagnosis Line: undetermined Diagnosis Line: Abnormal ECG Diagnosis Line: When compared with ECG of 08-JAN-2016 08:30, Diagnosis Line: Sinus tachycardia is now Present Diagnosis Line: Confirmed by ERICA RICARDO MD ([id number]) on 03/30/2017 Diagnosis Line: 7:49:34 AM INTERPRETING MD: HALEIGH CONTRERAS
--- NOTE | ~2017-03-28 | HP ---
Unit #: [id number] #: [id number] Patient: NEEL BENAVIDES I [id number] [place] [id number] [facility]. [place], [place] [address] [id number] I MR#: [id number] NAME: NEEL BENAVIDES I. ROOM: 23377 Age: 66 Sex: F Admission Date: 03/28/2017 : 1950 Attending Physician: Nenita Pedersen M.D. Primary Care Physician: Lexi Jamil M.D. HISTORY AND PHYSICAL CHIEF COMPLAINT Altered mental status. HISTORY OF PRESENT ILLNESS The patient is a 66-year-old female with past medical history of hypertension, gastric lymphoma, who presented to the emergency department for evaluation of the above. The history is obtained from chart review and discussion with ER staff as well as from the patient's and daughter who are at bedside. The patient has apparently been confused since yesterday. She has been crying uncontrollably and saying things that do not make sense. For example, she was crying because she stated that she forgot how to make coffee. She also said that it was raining in her closet. She has not had any fever. No cough or cold symptoms. Her appetite has been good. No vomiting or diarrhea. In the emergency department, initial pulse and blood pressure 133 and 165/97 respectively. Urinalysis shows findings concerning for urinary tract infection. She was given a gram of Rocephin. Also of note, lactic acid is 5.5. She was given a total of 2.5 L of normal saline. She is being admitted to [facility] for evaluation and further treatment. She also received 20 mg of Geodon in the emergency department. PAST MEDICAL HISTORY 1. Admission to [facility] July 22 through July 25, 2015 for neutropenic fever secondary to pseudomonas Port-A-Cath infection and E. coli urinary tract infection. She was discharged home on Levaquin. 2. Gastric lymphoma followed by Dr. Peterson, status post chemotherapy with last chemotherapy being October 2015. 3. Hypertension. PAST SURGICAL HISTORY 1. D and C. 2. Cataract surgery. 3. Hysterectomy. 4. Bladder repair. 5. Carpal tunnel release. SOCIAL HISTORY The patient lives with her . There is no tobacco or alcohol use. She walks without assistance. Unit #: [id number] #: [id number] Patient: NEEL BENAVIDES I FAMILY HISTORY Notable for breast cancer. ALLERGIES Pseudoephedrine. HOME MEDICATIONS 1. Hydrocodone/acetaminophen 5/325 four times daily p.r.n. 2. Potassium 20 mEq daily. 3. Lopressor 25 mg twice daily. 4. Desyrel 100 mg daily. 5. Zestril 5 mg daily. 6. Gabapentin 300 mg t.i.d. 7. Prilosec 40 mg daily. 8. Compazine 10 mg t.i.d. p.r.n. 9. Docusate 300 mg at bedtime. 10. Multivitamin daily. 11. Melatonin 5 mg at bedtime. 12. Calcium Plus D twice daily. 13. Iron 324 mg daily. REVIEW OF SYSTEMS A complete review of systems is negative except as indicated in the HPI. DIAGNOSTIC STUDIES LABORATORY: Complete blood count notable for hemoglobin and hematocrit of 16.8 and 48.1 respectively. INR is 1.1. Ammonia level is 14. Comprehensive metabolic panel notable for CO2 of 21, glucose 185. Alcohol level is less than 5. Urine tox screen is positive for opiates. Lactic acid 5.5. Urinalysis notable for 3+ leukocyte esterase, 2+ protein, 3+ ketones, 2+ blood with 25-50 red blood cells, innumerable white blood cells. IMAGING: Chest x-ray shows nothing acute. CT of the head shows nothing acute. CARDIOVASCULAR: EKG showed sinus tachycardia with rate of 129 beats per minute. PHYSICAL EXAMINATION VITAL SIGNS: Temperature is 98.8, pulse 133, respirations 16, blood pressure 165/97, oxygen saturation is 99% on room air. GENERAL: The patient is a female who is awake and alert. HEENT: The head is atraumatic. Mucous membranes are dry. NECK: Supple. Trachea is midline. CARDIOVASCULAR: Tachycardic in the one teens. LUNGS: Clear to auscultation bilaterally with no increased work of breathing. ABDOMEN: Soft, nontender with bowel sounds present in all four quadrants. EXTREMITIES: Nontender with no pedal edema. NEUROLOGIC: The patient is awake. She is inattentive. She is not responding appropriately to questions. She is moving all extremities. PSYCHIATRIC: The patient does have emotional lability with anxiety. SKIN: Skin of examined areas is warm and dry. ASSESSMENT Unit #: [id number] #: [id number] Patient: NEEL BENAVIDES I The patient is a 66-year-old female with: 1. Altered mental status. 2. Urinary tract infection: Review of urine cultures from [facility] shows that the patient had a urine culture July 22, 2015 that grew greater than 100,000 E. coli that was pansensitive. She received Rocephin in the emergency department. 3. Sepsis with initial lactic acid of 5.5. The patient received 2.5 L of normal saline in the emergency department. 4. Hypertension. 5. History of gastric lymphoma, status post chemotherapy, followed by Dr. Peterson. PLAN 1. Admit to intermediate level. 2. Neuro checks q.4 hours. 3. TSH, B12, and folate. 4. Blood cultures x2. 5. Urine culture and sensitivity on urine in the lab. 6. Rocephin 1 g IV daily pending results of urine culture. 7. Sepsis protocol. 8. Normal saline at 75 mL/hr. 9. Healthy heart diet if passes bedside swallow. 10. Serial cardiac enzymes. 11. P.r.n. Zofran. 12. Hold medications that could be contributing to altered mental status. 13. Bed rest. 14. Fall precautions. 15. PT/OT to evaluate and treat. 16. Repeat labs in the morning. 17. SCDs for DVT prophylaxis. 18. Additional workup and consultants based on above. Dictated by Latoya Camarillo/qi TD: 03/28/2017 11:58 JOB #: [id number] HISTORY AND PHYSICAL Page 1 of 1 X Nenita Pedersen MD X HISTORY AND PHYSICAL
--- NOTE | ~2017-03-28 | CR72 ---
[facility] A Service of [facility] & [facility] RADIOLOGY TEXT RESULTS PATIENT: NEEL BENAVIDES I LOCATION: [facility] [phone] : [birth year] UNIT #: [id number] AGE: [address]: Ramin Luna MD SEX: F ORDER DR: [id number] [facility] [address] [facility]. [place], [place] [address] [id number] I MR#: [id number] #: [id number] NAME: NEEL BENAVIDES I. : 1950 SEX: F STUDY DATE/TIME: 03/29/2017 16:53 UNIT: [facility] ROOM: [facility] STUDY DESCRIPTION: CR Chest Single View Portable Attending Physician: Ramin Luna M.D. Ordering Physician: Ramin Mello M.D. Primary Care Physician: Lexi Jamil M.D. MEDICAL IMAGING REPORT This report is preliminary unless electronic signature is present EXAM Single view chest INDICTIONS: Shortness of air. Unresponsive. Inability to eat. Lethargy. FINDINGS AP and upright of the abdomen compared to 03/29/2017 at 15:33. The enteric tube has been retraced now at the EG junction. This should be advanced by approximately 10 cm to secure location in the stomach. IMPRESSION Enteric tube tip is at the EG junction. Recommend advancement by 10 cm. Dictated by... Jason Em M.D. THIS IS AN ELECTRONICALLY VERIFIED REPORT Jason Em M.D. at 03/31/2017 9:48 AM CHANTAL/dionisio TD: 03/30/2017 08:51 JOB #: [id number] MEDICAL IMAGING REPORT Page 1 of 1 COPY
[~2017-03-28 07:16] MED LIST changes: -BACLOFEN20 M1 PO; -BENADRYL25 M1 PO; -CALCIUM 600+D1 EACH PO; -CHEWABLE ASPIRI81 MG PO; -COMPAZINE10 M2 PO; -FERROUS GLUCON324 M2 PO; -GABAPENTIN300 M2 PO; -GABAPENTIN300 MG PO; -HYDROCODON-ACE1 EAC7 PO; -KCL PO; -LISINOPRIL PO; -LOPRESSOR PO; -MELATONIN5 M1 PO; -MULTIVITAMINS1 EAC3 PO; -PATIENT'S PHARMACY; -PRILOSEC PO; -VITAMIN C1000 M2 PO
[2017-03-28 08:37] LABS: URINE SOURCE CLEAN CATCH
[2017-03-28 08:42] LABS: BASOPHIL% 0.2 % (0-2.5); DIFF IND NO; EOSINOPHIL% 0.1 % (0.0-7.0); HEMATOCRIT 48.1 % (35.0-45.0); HEMOGLOBIN 16.8 gm/dL (12.0-16.0); LYMPHOCYTE# 1.7 X10e3 (1.0-3.5); LYMPHOCYTE% 30.4 % (17.0-45.0); MEAN CELL VOLUME 99.7 FL (83-96); MEAN CORPUSCULAR HEMOGLOBIN 34.9 PG (28-34); MEAN PLATELET VOLUME 7.7 FL (6.5-11.5); MONOCYTE# 0.3 X10e3 (0-1.0); MONOCYTE% 5.7 % (3.0-12.0); NEUTROPHIL# 3.5 X10e3 (1.5-7.1); NEUTROPHIL% 63.6 % (40-75); PLATELET COUNT 191 X10e3 (140-420); RED BLOOD COUNT 4.82 X10e (3.90-5.30); RED CELL DISTRIBUTION WIDTH 12.4 % (11.0-15.5); URINE APPEARANCE TURBID; URINE BLOOD 2+ (NEG); URINE COLOR DK YELLOW; URINE GLUCOSE NEG (NEG); URINE KETONE 3+ (NEG); URINE LEUKOCYTE ESTERASE 3+ (NEG); URINE NITRATE NEG (NEG); URINE PH 5.5 (5-8); URINE PROTEIN 2+ (NEG); URINE SPECIFIC GRAVITY 1.025 (1.003-1.035); WHITE BLOOD COUNT 5.5 X10e3 (4.0-10.5)
[2017-03-28 08:45] LABS: CULTURE INDICATED? YES; URBCS1 AUWI 25-50 /[HPF] (0-2); URINE BACTERIA AUWI NEG (NEGATIVE); URINE SQUAMOUS EPITHELIAL CELL NONE SEEN /[HPF]; UWBCS1 AUWI INNUM (0-5)
[2017-03-28 08:53] LABS: INR 1.1; PARTIAL THROMBOPLASTIN TIME 24.4 SECONDS (23.5-31.3); PROTHROMBIN TIME (PATIENT) 11.6 SECONDS (10.0-11.7)
[2017-03-28 09:10] LABS: URINE BILIRUBIN NEG (NEG)
[2017-03-28 09:12] LABS: ALBUMIN SERUM 4.8 g/dL (3.5-5.0); ALKALINE PHOSPHATASE 62 U/L (32-92); ALT (SGPT) 21 U/L (10-40); AST (SGOT) 38 U/L (10-42); BILIRUBIN, DIRECT 0.4 mg/dL (0.0-0.2); BILIRUBIN,INDIRECT 0.7 mg/dL (0.0-0.9); BILIRUBIN,TOTAL 1.1 mg/dL (0.2-2.0); BLOOD UREA NITROGEN 14 mg/dL (9-23); CALCIUM SERUM 9.8 mg/dL (8.4-10.2); CARBON DIOXIDE 21 mmol/L (22-31); CHLORIDE 101 mmol/L (100-111); GLOM FILT RATE Estimated 59.1 mL/min (>60); GLUCOSE FASTING 185 mg/dL (70-110); POTASSIUM 3.6 mmol/L (3.5-5.1); SODIUM 139 mmol/L (135-145)
[2017-03-28 09:14] LABS: ALCOHOL BLOOD <5 mg/dL (0); AMPHETAMINE NEG (NEG); BARBITURATES NEG (NEG); BENZODIAZEPINES NEG (NEG); COCAINE NEG (NEG); MARIJUANA NEG (NEG); OPIATES POS (NEG); TRICYCLIC ANTIDEPRESSANTS NEG (NEG); U METHADONE NEG (NEG)
[2017-03-28] MEDS ORDERED: HYDROCODON-ACE1 EAC7 PO (09:43)
[2017-03-28] MEDS ORDERED: PATIENT'S PHARMACY (09:43)
[2017-03-28] MEDS ORDERED: KCL PO (09:43)
[2017-03-28] MEDS ORDERED: LOPRESSOR PO (09:44)
[2017-03-28] MEDS ORDERED: LISINOPRIL PO (09:44)
[2017-03-28] MEDS ORDERED: GABAPENTIN300 MG PO (09:44)
[2017-03-28] MEDS ORDERED: DESYREL100 MG PO (09:44)
[2017-03-28] MEDS ORDERED: PRILOSEC PO (09:44)
[2017-03-28] MEDS ORDERED: COMPAZINE10 M2 PO (09:46)
[2017-03-28] MEDS ORDERED: COL-RITE50 MG PO (09:46)
[2017-03-28] MEDS ORDERED: MULTIVITAMINS1 EAC3 PO (09:46)
[2017-03-28] MEDS ORDERED: FERROUS GLUCON324 M2 PO (09:47)
[2017-03-28] MEDS ORDERED: CALCIUM 600+D1 EACH PO (09:47)
[2017-03-28] MEDS ORDERED: MELATONIN5 M1 PO (09:47)
[2017-03-28 12:03] LABS: FOLATE (FOLIC ACID) >23.3 ng/mL (>5.8)
[2017-03-28 12:04] LABS: %MB 3.2 % (0.0-4.0); MB 5.2 ng/ml
[2017-03-28 15:28] LABS: MB 6.3 ng/ml
[2017-03-28 18:48] LABS: %MB 2.1 % (0.0-4.0); MB 9.1 ng/ml
[2017-03-29 07:08] LABS: HEMATOCRIT 47.5 % (35.0-45.0); HEMOGLOBIN 16.7 gm/dL (12.0-16.0); MEAN CELL VOLUME 99.4 FL (83-96); MEAN CORPUSCULAR HEMOGLOBIN 34.9 PG (28-34); MEAN CORPUSCULAR HGB CONC 35.1 g/dL (30-36); MEAN PLATELET VOLUME 8.1 FL (6.5-11.5); RED BLOOD COUNT 4.78 X10e (3.90-5.30); RED CELL DISTRIBUTION WIDTH 12.6 % (11.0-15.5)
[2017-03-29 07:23] LABS: WHITE BLOOD COUNT 11.2 X10e3 (4.0-10.5)
[2017-03-29 08:11] LABS: ALBUMIN SERUM 4.2 g/dL (3.5-5.0); BILIRUBIN,TOTAL 1.8 mg/dL (0.2-2.0); BUN/CREATININE RATIO 18.57; CALCIUM SERUM 9.1 mg/dL (8.4-10.2); CREATININE SERUM 0.7 mg/dL (0.6-1.4); GLOM FILT RATE Estimated 90.9 mL/min (>60); POTASSIUM 3.1 mmol/L (3.5-5.1); PROTEIN TOTAL SERUM 7.2 g/dL (6.0-8.3)
[2017-03-29 10:08] LABS: %MB 2.4 % (0.0-4.0); MB 14.5 ng/ml
[2017-03-29 11:05] LABS: CHOLESTEROL 218 mg/dL (0-200); HDL CHOLESTEROL 75 mg/dL (35-95); LDL CHOLESTEROL 124 mg/dL (-130); LDL/HDL RATIO 2 RATIO (0-4); TRIGLYCERIDES 96 mg/dL (10-160)
[2017-03-29 15:27] LABS: %MB 3.2 % (0.0-4.0); MB 18.8 ng/ml
[2017-03-29 16:21] LABS: CALCIUM SERUM 8.7 mg/dL (8.4-10.2); CREATININE SERUM 0.7 mg/dL (0.6-1.4); GLOM FILT RATE Estimated 90.9 mL/min (>60); POTASSIUM 3.6 mmol/L (3.5-5.1)
[2017-03-29 17:13] LABS: ARTERIAL BLD GAS O2 SATURATION 94.7 % (90.0-100.0); ARTERIAL BLOOD GAS CARBOXY HB 0.7 %sat (0.0-9.0); ARTERIAL BLOOD GAS HCO3 23.5 mmol/L; ARTERIAL BLOOD GAS MET HB 0.5 %sat (0.0-2.0); ARTERIAL BLOOD GAS pH 7.488 (7.350-7.450)
[2017-03-29 17:14] LABS: ARTERIAL BLOOD GAS ALLEN TEST NORMAL; ARTERIAL BLOOD GAS ART SITE RIGHT RADIAL; ARTERIAL BLOOD GAS PO2 70.7 mmHg (80.0-100); ARTERIAL DRAW? YES
[2017-03-29 20:47] LABS: URINE APPEARANCE CLEAR; URINE BILIRUBIN NEG (NEG); URINE BLOOD 2+ (NEG); URINE COLOR YELLOW; URINE GLUCOSE NEG (NEG); URINE KETONE 2+ (NEG); URINE LEUKOCYTE ESTERASE TRACE (NEG); URINE NITRATE NEG (NEG); URINE PROTEIN TRACE (NEG); URINE SPECIFIC GRAVITY 1.022 (1.003-1.035)
[2017-03-29 20:50] LABS: URINE BACTERIA AUWI NEG (NEGATIVE); URINE SQUAMOUS EPITHELIAL CELL NONE SEEN /[HPF]
[2017-03-30 05:46] LABS: BASOPHIL% 0.2 % (0-2.5); HEMATOCRIT 46.6 % (35.0-45.0); LYMPHOCYTE# 1.4 X10e3 (1.0-3.5); LYMPHOCYTE% 19.6 % (17.0-45.0); MEAN CELL VOLUME 99.9 FL (83-96); MEAN CORPUSCULAR HEMOGLOBIN 34.4 PG (28-34); MEAN CORPUSCULAR HGB CONC 34.4 g/dL (30-36); MEAN PLATELET VOLUME 7.4 FL (6.5-11.5); MONOCYTE# 0.7 X10e3 (0-1.0); MONOCYTE% 9.8 % (3.0-12.0); NEUTROPHIL# 5.1 X10e3 (1.5-7.1); NEUTROPHIL% 70.4 % (40-75); PLATELET COUNT 177 X10e3 (140-420); RED BLOOD COUNT 4.66 X10e (3.90-5.30); RED CELL DISTRIBUTION WIDTH 12.5 % (11.0-15.5); WHITE BLOOD COUNT 7.3 X10e3 (4.0-10.5)
[2017-03-30 06:08] LABS: CALCIUM SERUM 8.9 mg/dL (8.4-10.2); CREATININE SERUM 0.6 mg/dL (0.6-1.4); GLOM FILT RATE Estimated 95.7 mL/min (>60); MAGNESIUM 1.9 mg/dL (1.6-3.0); POTASSIUM 3.2 mmol/L (3.5-5.1)
[2017-03-30 06:10] LABS: DIFF IND NO
[2017-03-30 06:14] LABS: ALBUMIN SERUM 3.6 g/dL (3.5-5.0); BILIRUBIN,TOTAL 1.2 mg/dL (0.2-2.0); BUN/CREATININE RATIO 23.75; CALCIUM SERUM 8.9 mg/dL (8.4-10.2); CREATININE SERUM 0.8 mg/dL (0.6-1.4); GLOM FILT RATE Estimated 77.4 mL/min (>60); PHOSPHOROUS 2.4 mg/dL (2.5-4.6); POTASSIUM 3.3 mmol/L (3.5-5.1)
[2017-03-30] MEDS ORDERED: BACLOFEN20 M1 PO (12:18)
[2017-03-30] MEDS ORDERED: GABAPENTIN300 M2 PO (12:19)
[2017-03-30] MEDS ORDERED: BENADRYL25 M1 PO (12:20)
[2017-03-30] MEDS ORDERED: CHEWABLE ASPIRI81 MG PO (12:21)
[2017-03-30] MEDS ORDERED: CHROMIUM PIC1000 MCG PO (12:22)
[2017-03-30] MEDS ORDERED: VITAMIN C1000 M2 PO (12:23)
[2017-03-31 06:41] LABS: BASOPHIL% 0.6 % (0-2.5); EOSINOPHIL# 0.1 X10e3 (0-0.7); EOSINOPHIL% 1.3 % (0.0-7.0); HEMATOCRIT 41.4 % (35.0-45.0); LYMPHOCYTE# 1.5 X10e3 (1.0-3.5); LYMPHOCYTE% 29.7 % (17.0-45.0); MEAN CELL VOLUME 101.7 FL (83-96); MEAN CORPUSCULAR HEMOGLOBIN 34.3 PG (28-34); MEAN CORPUSCULAR HGB CONC 33.7 g/dL (30-36); MEAN PLATELET VOLUME 7.6 FL (6.5-11.5); MONOCYTE# 0.6 X10e3 (0-1.0); MONOCYTE% 10.8 % (3.0-12.0); NEUTROPHIL# 2.9 X10e3 (1.5-7.1); NEUTROPHIL% 57.6 % (40-75); PLATELET COUNT 149 X10e3 (140-420); RED BLOOD COUNT 4.07 X10e (3.90-5.30); RED CELL DISTRIBUTION WIDTH 12.6 % (11.0-15.5); WHITE BLOOD COUNT 5.1 X10e3 (4.0-10.5)
[2017-03-31 06:44] LABS: DIFF IND NO
[2017-03-31 07:47] LABS: ALBUMIN SERUM 3.3 g/dL (3.5-5.0); BILIRUBIN,TOTAL 0.9 mg/dL (0.2-2.0); BUN/CREATININE RATIO 28.33; CALCIUM SERUM 8.5 mg/dL (8.4-10.2); CREATININE SERUM 0.6 mg/dL (0.6-1.4); GLOM FILT RATE Estimated 95.7 mL/min (>60); MAGNESIUM 1.8 mg/dL (1.6-3.0); PHOSPHOROUS 3.4 mg/dL (2.5-4.6); POTASSIUM 3.8 mmol/L (3.5-5.1); PROTEIN TOTAL SERUM 5.4 g/dL (6.0-8.3)
[2017-04-01 05:40] LABS: HEMATOCRIT 40.8 % (35.0-45.0); MEAN CORPUSCULAR HEMOGLOBIN 34.2 PG (28-34); MEAN CORPUSCULAR HGB CONC 34.2 g/dL (30-36); MEAN PLATELET VOLUME 7.6 FL (6.5-11.5); RED BLOOD COUNT 4.08 X10e (3.90-5.30); RED CELL DISTRIBUTION WIDTH 12.2 % (11.0-15.5)
[2017-04-01 05:57] LABS: ALBUMIN SERUM 3.9 g/dL (3.5-5.0); BILIRUBIN,TOTAL 0.9 mg/dL (0.2-2.0); BUN/CREATININE RATIO 28.57; CALCIUM SERUM 8.7 mg/dL (8.4-10.2); CREATININE SERUM 0.7 mg/dL (0.6-1.4); GLOM FILT RATE Estimated 90.9 mL/min (>60); POTASSIUM 3.5 mmol/L (3.5-5.1); PROTEIN TOTAL SERUM 6.4 g/dL (6.0-8.3)
== END 2017-04-02 14:45 | DRG 872 ==
LOC: CED 07:16 → CEDOF 09:50 → CED 11:16 → C3A PCU 15:28 → CICCU3 03-29 16:37 → C5C 03-30 21:00
PROVIDERS: Emergency Medicine; Family Medicine; Internal Medicine; Internal Medicine Cardiovascular Disease; Internal Medicine Hematology & Oncology; Nurse Practitioner
DX: A41.9 Sepsis, unspecified organism (principal); M62.82 Rhabdomyolysis; F33.2 Major depressive disorder, recurrent severe without psychotic features; D75.1 Secondary polycythemia; F06.1 Catatonic disorder due to known physiological condition; I51.81 Takotsubo syndrome; N39.0 Urinary tract infection, site not specified; I10 Essential (primary) hypertension; R65.20 Severe sepsis without septic shock; Z85.72 Personal history of non-Hodgkin lymphomas; E87.6 Hypokalemia; M54.9 Dorsalgia, unspecified; F43.20 Adjustment disorder, unspecified; F39 Unspecified mood [affective] disorder; F41.9 Anxiety disorder, unspecified; Z80.3 Family history of malignant neoplasm of breast; E66.9 Obesity, unspecified; Z68.26 Body mass index [BMI] 26.0-26.9, adult; Z98.49 Cataract extraction status, unspecified eye; Z90.710 Acquired absence of both cervix and uterus; T42.8X5A Adverse effect of antiparkinsonism drugs and other central muscle-tone depressants, initial encounter
CPT/HCPCS: 36415; 36600; 51702; 70450; 70551; 71010; 74000; 80048; 80053; 80061; 80076; 80307; 81003; 82140; 82550; 82553; 82607; 82746; 82803; 82947; 83605; 83735; 84100; 84132; 84443; 84484; 85025; 85027; 85610; 85730; 86747; 86790; 87040; 87086; 92526; 92610; 93005; 93306; 96360; 96372; 97110; 97116; 97162; 97166; 97530; 97535; 99285; C9113; G0480; G8978-GP; G8979-GP; G8987-GO; G8988-GO; G8996-GN; G8997-GN; G8998-GN; J0360; J0696; J1650; J1940; J2060; J3480; J3486; J3490; J7060